=== PATIENT | male | born 1955 | race Hispanic/Latino ===

== ENCOUNTER → 2023-01-05 | Outpatient (CLI) | payer OTHER ==
[~2023-01-05] MED LIST: REGADENOSON 0.4 MG/5 ML PF SYG IVP SCH
== END | disposition home or self-care (01) ==
LOC: SHCH 07:32
PROVIDERS: ATTEND Internal Medicine Cardiovascular Disease
DX: I25.10 Atherosclerotic heart disease of native coronary artery without angina pectoris (principal); R06.09 Other forms of dyspnea
CPT/HCPCS: 78452; 96374; 93017; J2785; A9500 ×2